=== PATIENT | male | born 1955 | race Caucasian/White ===

== ENCOUNTER 2023-04-24 09:24 | Inpatient (IN) | payer MEDICAID, MEDICARE ==
[2023-04-24] MEDS ORDERED: Polyethylene Glycol/Electrolytes 4,000 ML Bottle PO ONE (16:27)
[2023-04-25] MEDS ORDERED: MULTIVITAMIN PO SCH (09:00)
[2023-04-25] MEDS ORDERED: Cholestyramine/Sucrose Powder 4 GM Packet PO SCH (09:00)
[2023-04-25] MEDS ORDERED: amLODIPine 5 MG Tab PO SCH (09:00)
[2023-04-25] MEDS ORDERED: Cholecalciferol (Vitamin D3) 25 MCG Tab PO SCH (09:00)
[2023-04-25 10:29] VITALS: BP 145/77; PULSE 91
== END 2023-04-25 11:00 | disposition home or self-care (01) | DRG 951 ==
LOC: VM.MS 13:59 → UNDOADMIN 13:59
PROVIDERS: ADMIT Family Medicine; ATTEND Family Medicine
DX: Z12.11 Encounter for screening for malignant neoplasm of colon (principal); M81.0 Age-related osteoporosis without current pathological fracture; I10 Essential (primary) hypertension; N40.0 Benign prostatic hyperplasia without lower urinary tract symptoms; R62.50 Unspecified lack of expected normal physiological development in childhood; F71 Moderate intellectual disabilities; Z88.8 Allergy status to other drugs, medicaments and biological substances; Z79.899 Other long term (current) drug therapy
CPT/HCPCS: 87070; A9270-GY

== ENCOUNTER 2023-04-25 08:12 | Day surgery (SDC) | payer MEDICARE, MEDICAID ==
[2023-04-25] MEDS: Midazolam 1 MG/ML 2 ML SDV IVPUSH PRN (11:34)
[2023-04-25] MEDS: Lactated Ringers 1,000 ML IV SCH (11:50)
[2023-04-25] MEDS ORDERED: Midazolam 1 MG/ML 2 ML SDV ONE (12:21)
[2023-04-25] MEDS ORDERED: fentaNYL 100 MCG/2 ML SDV ONE (12:21)
[2023-04-25] MEDS ORDERED: Propofol 200 MG/20 ML SDV ONE ×2 (12:21→13:07)
[2023-04-25 14:25] VITALS: BP 159/92; PULSE 91
== END 2023-04-25 14:40 | disposition home or self-care (01) ==
LOC: VM.SDS 08:12
PROVIDERS: ATTEND Family Medicine
DX: Z12.11 Encounter for screening for malignant neoplasm of colon (principal); D12.0 Benign neoplasm of cecum; D12.6 Benign neoplasm of colon, unspecified; Q43.8 Other specified congenital malformations of intestine; I10 Essential (primary) hypertension; M81.0 Age-related osteoporosis without current pathological fracture; Z79.899 Other long term (current) drug therapy; Z88.8 Allergy status to other drugs, medicaments and biological substances
CPT/HCPCS: 00812; 88305; J2250; J2704; J3010; J7120